=== PATIENT | female | born 2000 | race Caucasian/White ===

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

== ENCOUNTER 2021-01-30 14:07 | Emergency (ER) | payer OTHER ==
[~2021-01-30 14:07] MED LIST: IBUPROFEN600 MG PO
[2021-01-30] MEDS ORDERED: ZOFRAN ODT 4 MG4 MG SL (18:09)
[2021-01-30] MEDS ORDERED: IBUPROFEN600 MG PO (18:09)
[2021-01-30] MEDS ORDERED: OMNICEF 300 MG300 MG PO (18:09)
== END 2021-01-30 18:32 | disposition home or self-care (01) ==
LOC: ER1 14:07
DX: J02.9 Acute pharyngitis, unspecified (principal); N39.0 Urinary tract infection, site not specified; F17.200 Nicotine dependence, unspecified, uncomplicated; Z20.822 Contact with and (suspected) exposure to COVID-19
CPT/HCPCS: 0240U; 81001; 84703; 87081; 87086; 87880; 96372; 99283; J1100; J1885